=== PATIENT | male | born 2000 | race American Indian/Alaskan Native ===

== ENCOUNTER 2023-04-11 11:29 | Emergency (ER) | payer MEDICAID, OTHER ==
[2023-04-11] MEDS ORDERED: Sodium Chloride 0.9% 1,000 ML IV ONE (11:39)
[2023-04-11] MEDS ORDERED: Ondansetron 4 MG/2 ML SDV IV ONE (11:39)
[2023-04-11] MEDS ORDERED: Sodium Chloride 0.9% 10 ML Syringe FLUSH PRN (11:40)
[2023-04-11] MEDS ORDERED: cefTRIAXone 2 GM Vial IVPUSH ONE (11:40)
[2023-04-11] MEDS ORDERED: Dexamethasone 4 MG/ML SDV IVPUSH ONE (11:40)
[2023-04-11] MEDS ORDERED: Azithromycin 500 MG in Sodium Chloride 0.9% 250 ML IV ONE (11:40)
[2023-04-11 12:01] VITALS: BP 150/97; PULSE 90
== END 2023-04-11 13:08 | disposition home or self-care (01) ==
LOC: DL.ED 11:29
DX: J36 Peritonsillar abscess (principal)
CPT/HCPCS: 87081; 87430; 96365; 96375; 99283-25; J0456; J0696; J1100; J2405; J3490; J7030; J7050

== ENCOUNTER 2025-03-01 15:29 | Emergency (ER) | payer OTHER, MEDICAID ==
[2025-03-01] MEDS ORDERED: Haloperidol Lactate 5 MG/ML SDV ONE (15:35)
[2025-03-01] MEDS ORDERED: LORazepam 2 MG/ML SDV ONE ×2 (15:38→16:25)
[2025-03-01] MEDS ORDERED: Sodium Chloride 0.9% 1,000 ML IV ONE (15:47)
[2025-03-01] MEDS ORDERED: diphenhydrAMINE 50 MG/ML SDV IVPUSH ONE (15:47)
[2025-03-01 15:55] LABS: BASOPHILS PERCENT AUTO 0.6 % (0.0-1.0); EOSINOPHILS PERCENT AUTO 0.6 % (1.0-3.0); HEMATOCRIT 46.2 % (40.0-54.0); HEMOGLOBIN 15.9 g/dL (14.0-18.0); LYMPHOCYTES PERCENT AUTO 42.8 % (20.5-50.1); MEAN CORPUSCULAR HEMOGLOBIN 29.9 pg (27.0-34.0); MEAN CORPUSCULAR HGB CONC 34.4 g/dL (33.0-35.0); MEAN CORPUSCULAR VOLUME 86.8 fL (80-100); MONOCYTES PERCENT AUTO 5.5 % (2-8); NEUTROPHILS PERCENT AUTO 50.5 % (42.2-75.2); PLATELET COUNT,PLT 343 10^3/uL (150-450); RED BLOOD CELL COUNT 5.32 10^6/uL (4.6-6.2); WHITE BLOOD CELL COUNT,WBC 5.3 10^3/uL (5.0-10.0)
[2025-03-01 16:04] LABS: INR 1.1 (0.9-1.2)
[2025-03-01 16:16] LABS: ALANINE AMINOTRANSFERASE,ALT 24 U/L (16-63); ALBUMIN 4.3 g/dL (3.4-5.0); ALKALINE PHOSPHATASE 121 U/L (46-116); ANION GAP 14.2 mEq/L (7-13); ASPARTATE AMNIOTRANSFERASE,AST 18 U/L (15-37); BILIRUBIN TOTAL 0.5 mg/dL (0.2-1.0); BLOOD UREA NITROGEN,BUN 8 mg/dL (7-18); BUN/CREATININE RATIO 7.1 (No establ ref range); CARBON DIOXIDE,CO2 29 mmol/L (21-32); CHLORIDE,CL 108 mmol/L (98-107); CREATININE 1.13 mg/dL (0.70-1.30); ETHANOL BLOOD MEDICAL 267 mg/dL (0); GLUCOSE RANDOM 107 mg/dL (70-99); LACTIC ACID 2.2 mmol/L (0.4-2.0); MAGNESIUM 2.3 mg/dL (1.8-2.4); POTASSIUM,K 4.2 mmol/L (3.5-5.1); PROTEIN TOTAL,TP 8.4 g/dL (6.4-8.2); SODIUM,NA 147 mmol/L (136-145)
[2025-03-01 16:17] LABS: ESTIMATED GFR 93 mL/min (>=60)
[2025-03-01] MEDS: Iopamidol 755 Mg/ML 100 ML Bottle IVPUSH ONE (16:28)
[2025-03-01 16:42] LABS: AMPHETAMINES,URINE NEGATIVE (NEGATIVE); BARBITURATES,URINE NEGATIVE (NEGATIVE); BENZODIAZEPINE,URINE NEGATIVE (NEGATIVE); MDMA (ECSTASY), URINE NEGATIVE (NEGATIVE); METHADONE,URINE NEGATIVE (NEGATIVE); METHAMPHETAMINES,URINE NEGATIVE (NEGATIVE); OPIATES,URINE NEGATIVE (NEGATIVE); OXYCODONE,URINE NEGATIVE (NEGATIVE); PHENCYCLIDINE,URINE NEGATIVE (NEGATIVE); TCA,URINE NEGATIVE (NEGATIVE)
[2025-03-01 17:23] VITALS: BP 138/71; PULSE 86
[2025-03-01] MEDS ORDERED: Thiamine 100 MG in Sodium Chloride 0.9% 1,000 ML IV ONE (18:44)
== END 2025-03-01 20:10 | disposition home or self-care (01) ==
LOC: DL.ED 15:29
DX: F10.129 Alcohol abuse with intoxication, unspecified (principal); F12.929 Cannabis use, unspecified with intoxication, unspecified; V47.0XXA Car driver injured in collision with fixed or stationary object in nontraffic accident, initial encounter; Y93.89 Activity, other specified; Y90.9 Presence of alcohol in blood, level not specified
CPT/HCPCS: 36415; 51701; 70450; 71045; 71260; 72125; 72170; 74177; 80053; 80305; 80307; 83605; 83735; 85025; 85610; 96361; 96365; 96375; 96376; 99284; 99285; C1758; Q9967; J1200; J3411; J7030